=== PATIENT | female | born 1995 | race Caucasian/White ===

== ENCOUNTER 2016-07-07 08:23 | Day surgery (SDC) | payer OTHER ==
[~2016-07-07] VITALS: Ht 167.6 cm; Wt 56.7 kg
[2016-07-07 08:45] LABS: HCG,QUAL RESULT NEGATIVE (NEGATIVE)
[2016-07-07 09:14] VITALS: O2SAT 100
[2016-07-07] MEDS ORDERED: CEFAZOLIN 1 GM IVPB PREMIX 50 ML IV ONE (09:30)
[2016-07-07] MEDS ORDERED: NS 100 ML BAG IV ONE (09:30)
[2016-07-07] MEDS ORDERED: GLYCOPYRROLATE 0.2 MG/ML VIAL IJ ONE (09:30)
[2016-07-07] MEDS ORDERED: BUPIVACAINE /EPINEPHRINE/PF 0.5% 30 ML VIAL INJ ONE (09:30)
[2016-07-07] MEDS ORDERED: ROCURONIUM BROMIDE 10 MG/ML (ZEMURON) IV ONE (09:30)
[2016-07-07] MEDS ORDERED: fentaNYL CITRATE/PF 100 MCG/2 ML AMP IVP ONE (09:30)
[2016-07-07] MEDS ORDERED: SEVOFLURANE 15 MIN GAS INH ONE (09:30)
[2016-07-07] MEDS ORDERED: PROPOFOL 200MG/ 20ML VIAL (DIPRIVAN) IV ONE (09:30)
[2016-07-07] MEDS ORDERED: DEXAMETHASONE SOD PHOSPHATE 4 MG/ML VIAL IVP ONE (09:30)
[2016-07-07] MEDS ORDERED: ONDANSETRON HCL 4 MG/2 ML VIAL IVP ONE (09:30)
[2016-07-07] MEDS ORDERED: NEOSTIGMINE METHYLSULFATE 1 MG/ML, 10 ML VIAL IVP ONE (09:30)
[2016-07-07] MEDS ORDERED: MIDAZOLAM HCL 5 MG/5 ML VIAL IVP ONE (09:30)
[2016-07-07] MEDS ORDERED: LIDOCAINE 2% JELLY UROJECT 10 ML MM ONE (09:30)
[2016-07-07] MEDS ORDERED: LR 1,000 ML IV SCH (09:59)
[2016-07-07] MEDS ORDERED: METOCLOPRAMIDE HCL 10 MG/2 ML VIAL IVP PRN (10:00)
[2016-07-07] MEDS ORDERED: MEPERIDINE HCL/PF 50 MG/ML AMP IVP PRN ×2 (10:00)
[2016-07-07 11:18] VITALS: BP 111/82; PULSE 56; RESP 16
[2016-07-07] MEDS ORDERED: ACETAMINOPHEN WITH CODEINE 12.5 ML UDC ONE (11:57)
[2016-07-07] MEDS ORDERED: MEPERIDINE HCL/PF 50 MG/ML AMP IM PRN ×2 (13:15)
[2016-07-07] MEDS ORDERED: ACETAMINOPHEN WITH CODEINE 12.5 ML UDC PO PRN (13:15)
== END 2016-07-07 12:25 | disposition home or self-care (01) ==
LOC: SDS 08:23
PROVIDERS: ATTEND Otolaryngology
DX: J35.01 Chronic tonsillitis (principal)
CPT/HCPCS: 42826; 84703; J0690; J1100; J2250; J2405; J2704; J2710; J3010; J3490 ×2; J7120; 88304